=== PATIENT | female | born 1985 | race Caucasian/White ===

== ENCOUNTER 2020-01-05 19:08 | Emergency (ER) | payer MEDICAID ==
[~2020-01-05] VITALS: Ht 154.9 cm; Wt 63.5 kg
[2020-01-05 19:13] VITALS: BP 205/115
--- NOTE | 2020-01-05 19:17 | NUR ---
WAIT AT LOBBY
--- NOTE | 2020-01-05 19:24 | NUR ---
PT AMBULATED TO BED 02
[2020-01-05 20:44] VITALS: BP 135/86
--- NOTE | 2020-01-05 20:44 | NUR ---
Patient discharged with v/s stable. She was seen and discharged by Dr Graham. Written and verbal after care instructions given and explained. Patient verbalized understanding. Ambulatory with steady gait. All questions addressed prior to discharge. Advised to follow up with PMD.
== END 2020-01-05 20:44 | disposition home or self-care (01) ==
LOC: MED 19:08
DX: B02.9 Zoster without complications (principal); I10 Essential (primary) hypertension
CPT/HCPCS: 99283

== ENCOUNTER 2020-01-10 01:06 | Emergency (ER) | payer MEDICAID ==
[~2020-01-10] VITALS: Ht 154.9 cm; Wt 73.7 kg
[2020-01-10 01:10] VITALS: BP 134/95
--- NOTE | 2020-01-10 01:20 | NUR ---
PT BIBS. C/O DIZZINESS, VOMMITING, HEADACHE. C/O PAIN @ 10/10 TO HEAD. NEURO CHECKS WNL. PERRL. ABD SOFT, NON-DISTENDED, NON-TENDER UPON PALPATION. BOWEL SOUNDS ACTIVE X4. SKIN TURGOR <3 SEC. SPOUSE AT BEDSIDE. PMH- HTN, SHINGLES. MEDS- PT CLAIMS SHE TAKING A MEDICATION FOR SHINGLES BUT DOES NOT KNOW THE NAME. NKA.
[2020-01-10] MEDS ORDERED: NACL 0.9% 1,000 ML IV ONE (01:50)
[2020-01-10] MEDS ORDERED: KETOROLAC 30 MG/ML VIAL IVP ONE (01:50)
[2020-01-10] MEDS ORDERED: METOCLOPRAMIDE 10 MG/2 ML INJ VIAL IVP ONE (01:50)
--- NOTE | 2020-01-10 02:30 | NUR ---
PT UP TO USE RESTROOM. STATES SHE "FEELS A LOT BETTER NOW."
--- NOTE | 2020-01-10 03:33 | NUR ---
PT RESTING IN BED CMFORTABLY AT THIS TIME. EASILY AROUSABLE. SPOUSE REMAINS AT BEDSIDE.
--- NOTE | 2020-01-10 04:30 | NUR ---
PT SLEEPING IN BED. EASILY AROUSABLE. STATES PAIN IS RELIEVED. DENIES N/V.
[2020-01-10 05:55] VITALS: BP 134/95
--- NOTE | 2020-01-10 05:55 | NUR ---
Patient discharged with v/s stable. Written and verbal after care instructions given and explained. Patient alert, oriented and verbalized understanding of instructions. Ambulatory with steady gait. All questions addressed prior to discharge. ID band removed. Patient advised to follow up with PMD. Rx of EXCEDRINE MIGRAINE given. Patient educated on indication of medication including possible reaction and side effects. Opportunity to ask questions provided and answered.
== END 2020-01-10 05:55 | disposition home or self-care (01) ==
LOC: MED 01:06
DX: G43.909 Migraine, unspecified, not intractable, without status migrainosus (principal); R11.2 Nausea with vomiting, unspecified; I10 Essential (primary) hypertension; B02.9 Zoster without complications
CPT/HCPCS: 96361; 96374; 96375; 99284; J1885; J2765; J7030